=== PATIENT | male | born 1995 | race Hispanic/Latino ===

== ENCOUNTER 2020-12-08 21:55 | Emergency (ER) | payer BC ==
[~2020-12-08] VITALS: Ht 180.3 cm; Wt 4.5 kg
[2020-12-08 23:23] VITALS: BP 125/72
[2020-12-08] MEDS ORDERED: TETANUS/DIPHTHERIA TOX ADULT 0.5 ML SYR ONE (23:28)
[2020-12-08] MEDS ORDERED: TETANUS/DIPHTHERIA TOX ADULT 0.5 ML SYR IM ONE (23:30)
== END 2020-12-08 23:23 | disposition home or self-care (01) ==
LOC: FSED 23:13
DX: S01.01XA Laceration without foreign body of scalp, initial encounter (principal); W22.09XA Striking against other stationary object, initial encounter; Y99.0 Civilian activity done for income or pay
CPT/HCPCS: 90714; 99282